=== PATIENT | female | born 1970 ===

== ENCOUNTER 2019-02-21 12:30 | Inpatient (IN) | payer OTHER ==
[~2019-02-21] VITALS: Ht 160 cm; Wt 65.8 kg
[2019-02-21] MEDS ORDERED: AVAPRO150 MG PO (12:46)
[2019-02-21] MEDS ORDERED: HYDROCHLOROTH12.5 MG PO (12:47)
[2019-03-03] MEDS ORDERED: TANDEM PLUS CA1 EACH PO (11:11)
[2019-03-03] MEDS ORDERED: ACETAMINOPHEN-1 EAC2 PO (11:12)
[2019-03-03] MEDS ORDERED: COLACE100 MG PO (11:13)
[2019-03-03] MEDS ORDERED: GAS-X125 MG PO (11:13)
[2019-03-03] MEDS ORDERED: CIPRO500 MG PO (11:13)
== END 2019-03-03 13:18 | disposition home or self-care (01) | DRG 743 ==
LOC: O/R 12:30 → OB/GYN 02-28 05:45 → O/R 02-28 07:00 → OB/GYN 02-28 12:41
PROVIDERS: ADMIT Obstetrics & Gynecology
PROC: 0USG7ZZ Reposition Vagina, Via Natural or Artificial Opening (ICD-10-PCS; 2019-02-28)
PROC: 0UT9FZZ Resection of Uterus, Via Natural or Artificial Opening With Percutaneous Endoscopic Assistance (ICD-10-PCS; principal; 2019-02-28 07:00)
PROC: 0UT7FZZ Resection of Bilateral Fallopian Tubes, Via Natural or Artificial Opening With Percutaneous Endoscopic Assistance (ICD-10-PCS; 2019-02-28 07:00)
DX: N93.8 Other specified abnormal uterine and vaginal bleeding (principal); N87.0 Mild cervical dysplasia; D25.1 Intramural leiomyoma of uterus; N72 Inflammatory disease of cervix uteri; N80.0 Endometriosis of uterus; N73.6 Female pelvic peritoneal adhesions (postinfective); N89.8 Other specified noninflammatory disorders of vagina; Z88.6 Allergy status to analgesic agent